=== PATIENT | female | born 1975 | race Caucasian/White ===

== ENCOUNTER 2017-02-12 06:55 | Day surgery (SDC) | payer MEDICARE, OTHER ==
[2017-02-12] MEDS ORDERED: PROCHLORPERAZINE 10 MG/2 ML VIAL. IV (07:00)
[2017-02-12] MEDS ORDERED: ONDANSETRON PF 4 MG/2 ML VIAL. IV (07:00)
[2017-02-12] MEDS ORDERED: fentaNYL PF VIAL 100 MCG/2 ML VIAL IV (07:00)
[2017-02-12] MEDS ORDERED: HYDROmorphone 2 MG/ML VIAL IV (07:00)
[2017-02-12] MEDS ORDERED: LIDOCAINE 1% PF 2 ML VIAL. ID (07:00)
[2017-02-12] MEDS ORDERED: MORPHINE SULFATE 2 MG/ML DISP.SYRIN. IV (07:00)
[2017-02-12] MEDS: IV RINGERS,LACTATED 1000ML 1,000 ML IV (07:40)
[2017-02-12 07:45] LABS: NEG OBC UR NEG; POS OBC UR POS
[2017-02-12] MEDS ORDERED: PROPOFOL 20 ML IV ×2 (08:19→08:48)
[2017-02-12] MEDS ORDERED: MIDAZOLAM HCL/PF 2 MG/2 ML VIAL. (08:19)
[2017-02-12] MEDS ORDERED: fentaNYL PF VIAL 100 MCG/2 ML VIAL (08:19)
[2017-02-12] MEDS ORDERED: FAMOTIDINE 20 MG/2 ML VIAL (08:19)
[2017-02-12] MEDS ORDERED: ONDANSETRON PF 4 MG/2 ML VIAL. (08:19)
[2017-02-12] MEDS ORDERED: LIDOCAINE 2% PF Vial for OR 5 ML VIAL. (08:19)
[2017-02-12] MEDS ORDERED: DEXAMETHASONE SOD PHOS 20 MG/5 ML VIAL. (08:19)
[2017-02-12] MEDS: BUPIVACAINE MPF 0.5% 30 ML VIAL. (08:51)
[2017-02-12] MEDS: LIDOCAINE 1% PF 30 ML VIAL. (08:52)
[2017-02-12] MEDS ORDERED: SEVOFLURANE 16 TO 30 MINUTES. IH (08:57)
[2017-02-12] MEDS: fentaNYL PF VIAL 100 MCG/2 ML VIAL IV (09:22)
[2017-02-12] MEDS: HYDROcodone/APAP 5/325MG 1 TAB TABLET PO (09:58)
== END 2017-02-12 10:38 | disposition home or self-care (01) ==
LOC: SURG 06:55
DX: G56.02 Carpal tunnel syndrome, left upper limb (principal); F32.9 Major depressive disorder, single episode, unspecified; F41.9 Anxiety disorder, unspecified; E78.00 Pure hypercholesterolemia, unspecified; Z20.2 Contact with and (suspected) exposure to infections with a predominantly sexual mode of transmission; F98.8 Other specified behavioral and emotional disorders with onset usually occurring in childhood and adolescence; Z98.890 Other specified postprocedural states; Z79.899 Other long term (current) drug therapy
CPT/HCPCS: 64721; 81025; J0690; J1100; J2250; J2405; J2704; J3010; J3490; S0028

== ENCOUNTER → 2017-06-14 | Outpatient (CLI) | payer MEDICARE | END | disposition home or self-care (01) | LOC: KCIC MAMMO 13:08 | DX: Z12.31 Encounter for screening mammogram for malignant neoplasm of breast (principal) | CPT/HCPCS: 77067 ==

== ENCOUNTER → 2017-06-26 | Outpatient (CLI) | payer MEDICARE | END | disposition home or self-care (01) | LOC: KCIC MAMMO 08:30 | DX: N64.89 Other specified disorders of breast (principal); E78.00 Pure hypercholesterolemia, unspecified | CPT/HCPCS: 76641; 77066 ==

== ENCOUNTER 2017-07-04 05:58 | Day surgery (SDC) | payer MEDICARE ==
[~2017-07-04 05:58] MED LIST: BUPIVACAINE MPF 0.5% 30 ML VIAL.; LIDOCAINE 1% PF 30 ML VIAL.
[2017-07-04] MEDS: IV RINGERS,LACTATED 1000ML 1,000 ML IV (06:48)
[2017-07-04 06:51] LABS: NEG OBC UR NEG; POS OBC UR POS; U PREG PATIENT NEGATIVE (NEG)
[2017-07-04] MEDS ORDERED: ONDANSETRON PF 4 MG/2 ML VIAL. IV (07:00)
[2017-07-04] MEDS ORDERED: PROCHLORPERAZINE 10 MG/2 ML VIAL. IV (07:00)
[2017-07-04] MEDS ORDERED: MORPHINE SULFATE 4 MG/ML DISP.SYRIN. IV (07:00)
[2017-07-04] MEDS ORDERED: HYDROmorphone 2 MG/ML VIAL IV (07:00)
[2017-07-04] MEDS ORDERED: LIDOCAINE 1% PF 2 ML VIAL. ID (07:00)
[2017-07-04] MEDS ORDERED: fentaNYL PF VIAL 100 MCG/2 ML VIAL IV ×2 (07:00)
[2017-07-04] MEDS ORDERED: LIDOCAINE 2% PF Vial for OR 5 ML VIAL. (07:13)
[2017-07-04] MEDS ORDERED: DEXAMETHASONE SOD PHOS 20 MG/5 ML VIAL. (07:13)
[2017-07-04] MEDS ORDERED: ONDANSETRON PF 4 MG/2 ML VIAL. (07:13)
[2017-07-04] MEDS ORDERED: PROPOFOL 20 ML IV (07:13)
[2017-07-04] MEDS ORDERED: fentaNYL PF VIAL 100 MCG/2 ML VIAL (07:14)
[2017-07-04] MEDS ORDERED: MIDAZOLAM HCL/PF 2 MG/2 ML VIAL. (07:14)
[2017-07-04] MEDS ORDERED: LIDOCAINE 1% Multi-Dose 50 ML VIAL. (07:21)
[2017-07-04] MEDS ORDERED: HYDROcodone/APAP 7.5/325MG 1 TAB TABLET PO (08:45)
[2017-07-04] MEDS ORDERED: ceFAZolin 2GM PREMIX 2 GM/50 ML BAG IV (12:00)
== END 2017-07-04 09:41 | disposition home or self-care (01) ==
LOC: SURG 05:58
DX: G56.01 Carpal tunnel syndrome, right upper limb (principal); F32.9 Major depressive disorder, single episode, unspecified; F41.0 Panic disorder [episodic paroxysmal anxiety]; E78.00 Pure hypercholesterolemia, unspecified; F98.8 Other specified behavioral and emotional disorders with onset usually occurring in childhood and adolescence; F39 Unspecified mood [affective] disorder; Z98.890 Other specified postprocedural states; Z82.49 Family history of ischemic heart disease and other diseases of the circulatory system; Z82.3 Family history of stroke; F17.210 Nicotine dependence, cigarettes, uncomplicated; Z79.899 Other long term (current) drug therapy
CPT/HCPCS: 64721; 81025; J0690; J1100; J2250; J2405; J2704; J3010; J3490

== ENCOUNTER → 2018-05-30 | Outpatient (CLI) | payer MEDICARE ==
[2017-07-04 09:24] VITALS: BP 121/81
[~2018-05-30] MED LIST changes: +ALBU2.5V8 INH; +BACL20TA PO; -BUPIVACAINE MPF 0.5% 30 ML VIAL.; +CELE200C PO; +CITA40TA12 PO; +CLON2TAB9 PO; +DEXT30CA6 PO; +DIPH25CA58 PO; +DOCU-109 PO; +FURO20TA3 PO; +GABA-585 PO; +HYDR-2765 PO; +HYDR-3164 PO; -LIDOCAINE 1% PF 30 ML VIAL.; +LURA40TA PO; +OMEP20TA63 PO; +ONDA4TAB7 PO; +ONDA8TAB12 PO; +RANI-376 PO; +RIZA10TA PO
--- NOTE | 2018-05-30 12:05 | KCIC ---
Bilateral diagnostic digital mammograms: Reason for examination: Follow-up parenchymal nodules. Comparison is made to previous study dated 06/14/2017. Interpretation was made with the benefit of CAD. The skin and nipples show no abnormalities. No abnormal axillary lymph nodes are seen. The breast parenchyma shows scattered fibroglandular density. (Breast density: Category B.) There continued be small parenchymal densities seen bilaterally without change. There are no new dominant masses, suspicious calcifications or architectural distortions. Impression: Small parenchymal densities bilaterally. Ultrasound to follow. BI-RADS Category 0: Incomplete. Needs additional imaging evaluation. Bilateral breast ultrasound: Comparison is made to previous study dated 06/26/2017. Bilateral whole breast ultrasound including evaluation of all 4 quadrants and the retroareolar and axillary regions of both breasts was performed. In the right breast, there continue to be small hypoechoic nodular lesions which are subcentimeter in size consistent with fibrocystic changes. No suspicious nodules are seen. No abnormal appearing lymph nodes are seen in the right axilla. In the left breast, there is an intramammary lymph node at the 3:00 position 12 cm from the nipple measuring 3.9 mm in size. There is also a small 4.9 mm lesion consistent with a complicated cyst at the 3:30 position 7 cm from the nipple. There are no other cystic or solid lesion seen. No abnormal appearing lymph nodes are seen in the left axilla. IMPRESSION: Continued presence of benign-appearing fibrocystic changes bilaterally and an intramammary lymph node in the left breast. No suspicious abnormality seen. Recommend routine mammographic follow-up. BI-RADS Category 2: Benign. "Our facility is accredited by the [employer] Mammography Program." This patient's information has been entered into a reminder system for the patient to be notified with the results of her examination and a target date for the next mammogram. Electronically signed by: Dayna Quinones MD (05/30/2018 12:02 PM) [id number]
== END | disposition home or self-care (01) ==
LOC: KCIC MAMMO 08:07
PROVIDERS: ATTEND Family Medicine
DX: Z09 Encounter for follow-up examination after completed treatment for conditions other than malignant neoplasm (principal); R92.8 Other abnormal and inconclusive findings on diagnostic imaging of breast
CPT/HCPCS: 76641; 77066

== ENCOUNTER → 2018-11-08 | Outpatient (CLI) | payer MEDICARE ==
[2017-07-04 09:24] VITALS: BP 121/81
--- NOTE | 2018-11-10 10:47 | KCIC ---
MRI of the brain without contrast 11/10/2018 Clinical History: Migraine headaches. Technique: Unenhanced T1-weighted sagittal and axial, T2-weighted axial and coronal and FLAIR, gradient echo and diffusion-weighted axial images of the brain were obtained. Findings: Comparison is made to patient's CT scan of the head dated 11/11/2016. The ventricles and sulci are within normal limits in size and configuration. Patchy and several small focal areas of abnormally increased signal intensity are seen within the periventricular and subcortical white matter of both cerebral hemispheres on the FLAIR and T2-weighted images. These measure 2 mm to 7 mm in size. Their MRI appearance is nonspecific. They could reflect areas of small vessel ischemic disease. They can be seen in patients with a history of migraine headaches. No acute parenchymal abnormality is seen. No extra-axial fluid collection is seen. There is no MRI evidence of acute ischemia/infarction. The paranasal sinuses are essentially clear. Moderate to large mastoid effusions are seen bilaterally. Normal flow voids are seen within the major vascular structures surrounding the brain parenchyma. Impression: 1. Patchy and several small focal areas of abnormally increased signal intensity are seen within the white matter of both cerebral hemispheres on the FLAIR and T2-weighted images. These have a nonspecific MRI appearance. They could reflect areas of small vessel ischemic disease. They can be seen in patients with history of migraine headaches. 2. No acute parenchymal abnormality is seen. 3. Moderate to large sized bilateral mastoid effusions. Electronically signed by: Michael Gilbert MD (11/10/2018 10:44 AM) [facility]
--- NOTE | 2018-11-10 11:13 | KCIC ---
MRI of the cervical spine without contrast 11/08/2018 CLINICAL HISTORY: Neck pain. Fibromyalgia. TECHNIQUE: Unenhanced T1-weighted, T2-weighted and inversion recovery sagittal and gradient echo and T2-weighted axial images of the cervical spine were obtained. FINDINGS: Very mild lateral curvature of the cervical spine is seen convex to the left. There is straightening of the normal cervical lordosis. Degenerative signal changes are seen involving all of the disks of the cervical spine. Degenerative signal changes are seen within the marrow surrounding the C4-5, C5-6 and C6-7 discs. The cervical spinal cord is normal morphology, position, and signal characteristics. Mild mucosal thickening is seen involving both maxillary sinuses. At the C2-3, C3-4, C4-5 and C5-6 disc spaces there are minimal to mild generalized disc bulges. Degenerative changes are seen involving the uncovertebral and facet joints bilaterally. These findings do not result in significant central spinal canal or neural foraminal stenosis. At the C6-7 disc space is a mild generalized disc bulge. Superimposed on this disc bulge is a focal central disc protrusion. This measures 2 mm in AP diameter. Degenerative changes are seen involving the uncovertebral and facet joints bilaterally. These findings do not result in significant central spinal canal or neural foraminal stenosis. At the C7-T1 disc space there is a minimal generalized disc bulge. Degenerative changes are seen involving the facet joints bilaterally. These findings do not result in significant central spinal canal or neural foraminal stenosis. IMPRESSION: Degenerative changes are seen throughout the cervical spine. These findings do not result in significant central spinal canal or neural foraminal stenosis at any level. Electronically signed by: Michael Gilbert MD (11/10/2018 11:10 AM) [facility]
--- NOTE | 2018-11-10 11:17 | KCIC ---
MRI of the lumbar spine without contrast 11/08/2018 CLINICAL HISTORY: Low back pain. Fibromyalgia. TECHNIQUE: Unenhanced T1-weighted and T2-weighted sagittal and axial and inversion recovery sagittal images of the lumbar spine were obtained. FINDINGS: Very mild S-shaped curvature of the thoracolumbar spine is seen. Degenerative signal changes are seen involving the L4-5 discs. Degenerative signal changes are seen within the marrow surrounding this disc. The conus medullaris is normal morphology, position, and signal characteristics. At the L1-2, L2-3 and L3-4 disc spaces there are minimal generalized disc bulges. Degenerative changes are seen involving the facet joints bilaterally. There is mild ligamentum flavum hypertrophy bilaterally. These findings do not result in significant central spinal canal or neural foraminal stenosis. At the L4-5 disc space there is a mild to moderate generalized disc bulge. This is eccentric to the left. Degenerative changes are seen involving the facet joints bilaterally. There is mild ligamentum flavum hypertrophy bilaterally. There is prominence of the posterior epidural fat. These findings when combined result in mild central spinal canal stenosis. No neural foraminal stenosis is seen. At the L5-S1 disc space there is a minimal generalized disc bulge. Degenerative changes are seen involving the facet joints bilaterally. These findings do not result in significant central spinal canal or neural foraminal stenosis. IMPRESSION: The changes of degenerative disc disease are seen involving the lumbar spine. These findings result in mild central spinal canal stenosis at L4-5. No neural foraminal stenosis is seen. Electronically signed by: Michael Gilbert MD (11/10/2018 11:14 AM) [facility]
== END | disposition home or self-care (01) ==
LOC: KCIC MRI 14:43
PROVIDERS: ATTEND Psychiatry & Neurology Neurology with Special Qualifications in Child Neurology
DX: M51.36 Other intervertebral disc degeneration, lumbar region (principal); M48.061 Spinal stenosis, lumbar region without neurogenic claudication; M47.892 Other spondylosis, cervical region; M50.223 Other cervical disc displacement at C6-C7 level; G43.909 Migraine, unspecified, not intractable, without status migrainosus; H74.8X3 Other specified disorders of middle ear and mastoid, bilateral
CPT/HCPCS: 70551; 72141; 72148

== ENCOUNTER → 2020-03-23 | Outpatient (CLI) | payer MEDICARE ==
[2017-07-04 09:24] VITALS: BP 121/81
--- NOTE | 2020-03-23 16:12 | RAD ---
INDICATION: Reason: SHORT OF BREATH, WORSE WITH EXERTION, SMOKER / Spl. Instructions: / History: COMPARISON: None. FINDINGS: 2 view of chest obtained. Cardiac silhouette is unremarkable. No focal airspace consolidation or pulmonary edema. No gross osseous destructive lesion. IMPRESSION: * No focal airspace consolidation or edema. Electronically signed by: Landen Cohen MD (03/23/2020 4:10 PM) [id number]
== END ==
LOC: LAB 11:24
PROVIDERS: ATTEND Internal Medicine Pulmonary Disease
DX: R06.02 Shortness of breath (principal)
CPT/HCPCS: 71046

== ENCOUNTER → 2020-04-06 | Outpatient (CLI) | payer OTHER, MEDICAID ==
[2017-07-04 09:24] VITALS: BP 121/81
== END ==
LOC: LAB 11:30
PROVIDERS: ATTEND Internal Medicine Cardiovascular Disease
DX: R94.39 Abnormal result of other cardiovascular function study (principal); Z20.822 Contact with and (suspected) exposure to COVID-19
CPT/HCPCS: U0003

== ENCOUNTER 2020-04-08 07:02 | Outpatient (CLI) | payer MEDICARE, MEDICAID ==
[2020-04-08] VITALS (9 sets, daily range): BP systolic 111–142; BP diastolic 68–94
[~2020-04-08] VITALS: Ht 154.9 cm; Wt 78.0 kg
[2020-04-08 07:30] LABS: HEMATOCRIT 41.3 % (36.0-47.0); HEMOGLOBIN 13.9 g/dL (12.0-15.5); RED BLOOD COUNT 4.5 x10^6/uL (3.50-5.40); RED CELL DISTRIBUTION WIDTH 13.3 % (11.5-14.5); WHITE BLOOD COUNT 7.7 x10^3/uL (4.0-11.0)
[2020-04-08] MEDS ORDERED: IODIXANOL 320 MG/ML 100 ML VIAL. ONE (07:35)
[2020-04-08] MEDS ORDERED: LIDOCAINE 1% PF 2 ML VIAL. ONE (07:35)
[2020-04-08] MEDS ORDERED: HEPARIN for ARTERIAL LINE 1,500 ML ONE (07:35)
[2020-04-08 07:40] LABS: PROTHROMBIN TIME PATIENT 12.1 SEC (11.7-14.0)
[2020-04-08 07:53] LABS: CALCIUM 8.4 mg/dL (8.5-10.1); CREATININE 0.9 mg/dL (0.6-1.0); GFR 68.7; POTASSIUM 3.4 mmol/L (3.5-5.1)
[2020-04-08] MEDS ORDERED: fentaNYL PF VIAL 100 MCG/2 ML VIAL ONE (08:59)
[2020-04-08] MEDS ORDERED: VERAPAMIL 5 MG/2 ML VIAL. ONE (08:59)
[2020-04-08] MEDS ORDERED: MIDAZOLAM HCL/PF 2 MG/2 ML VIAL. ONE (08:59)
[2020-04-08] MEDS ORDERED: HEPARIN for IV BOLUS 10,000 UNIT/10 ML VIAL. ONE (08:59)
[2020-04-08] MEDS ORDERED: NITROGLYCERIN 200 MCG/2 ML SYRINGE FOR CATH/VASC LAB. ONE (09:00)
[2020-04-08] MEDS ORDERED: MIDAZOLAM HCL/PF 2 MG/2 ML VIAL. IV ONE (09:30)
[2020-04-08] MEDS ORDERED: VERAPAMIL 5 MG/2 ML VIAL. IART ONE (09:30)
[2020-04-08] MEDS ORDERED: HEPARIN for IV BOLUS 10,000 UNIT/10 ML VIAL. IART ONE (09:30)
[2020-04-08] MEDS ORDERED: NITROGLYCERIN 200 MCG/2 ML SYRINGE FOR CATH/VASC LAB. IART ONE (09:30)
[2020-04-08] MEDS ORDERED: fentaNYL PF VIAL 100 MCG/2 ML VIAL IV ONE (09:30)
[2020-04-08] MEDS ORDERED: IODIXANOL 320 MG/ML 100 ML VIAL. IART ONE (09:30)
[2020-04-08] MEDS ORDERED: LIDOCAINE 1% PF 2 ML VIAL. INJ ONE (09:30)
--- NOTE | 2020-04-08 12:13 | NUR ---
piv dc'd. TR band dc'd. Armboard reapplied. discharge instructions reviewed with pt. Emreexa prescription called in to pharmacy. Pt ambulated and tolerated PO. Pt home with family.
--- NOTE | 2020-04-08 15:00 | CARD ---
MR#: [id number] Date of Study: 04/08/2020 Ordering Physician: JOHN TEJEDA, Referring Physician: JOHN TEJEDA, Tech: Anneliese Spence APPROVED REPORT Technologist: Anneliese Spence Nurse: Binta Wing R.N. Procedure(s) performed: fl time: 1.8 mins dose: 29 gycm2 contrast: 48 ml moderate sedation: 20 mins Coronary angiography [facility] Clinical Frailty Scale [facility] Clinical Frailty Scale: Managing Well Heart Failure Heart Failure: No CASE TECHNIQUE IV conscious sedation was used throughout procedure with appropriate monitoring and was performed in the presence of a registered nurse who was an independent trained observer other than the physician p erforming the procedure. During this case, Fluoroscopy and low osmolar contrast were used for imaging . Specimen(s) Removed: N/A Estimated Blood loss: 10 cc's. PROCEDURE NARRATIVE Clinical information: 44-year-old woman with a past medical history of tobacco abuse and chest pain as well as significant family history who underwent a stress test which revealed anterior septal defect that was reversible suggestive of LAD territory ischemia and so she was brought to the catheterization laboratory for fur ther evaluation and treatment. Informed consent: Written informed consent was obtained from the patient after adequate discussion of the risks and rasheeda efits of the procedure. Procedure details: ACCESS: The right wrist was prepped and draped in usual sterile fashion. Under 1% lidocaine local anesthesia a 6 Maltese Terumo sheath was placed in the right radial artery via the Seldinger technique. DIAGNOSTIC ANGIOGRAPHY: Right and left coronary arteries were engaged with a 6 Maltese TIG catheter. Diagnostic angiography i n multiple views were obtained. Next, a 6 Maltese pigtail catheter was placed in the left ventricle a nd a LVEDP was measured. A pullback was performed after left ventriculography. All catheters were e xchanged over J-tip guidewire. FINDINGS: ======= Aorta: 110/80 Coronary angiography: LM: Large caliber vessel with normal angiographic appearance LAD: Large caliber vessel proximally with rapid tapering in the mid to distal segment and mild 30 to 40% stenosis in the mid to distal segment. D1: Small caliber vessel with normal angiographic appearance LCX: Moderate caliber non-dominant vessel with mild luminal irregularities OM1: Moderate caliber vessel with normal angiographic appearance RCA: Large caliber dominant vessel with normal angiographic appearance RPDA: Moderate caliber vessel with normal angiographic appearance CLOSURE: At case completion the right radial sheath was removed and a Terumo radial band was applied with 11 m L of air. Hemostasis was achieved. COMPLICATIONS: No acute complications noted Conclusion 1. No significant obstructive coronary artery disease 2. Distal vessel pruning suggestive overall of microvascular disease. Recommendations Trial of Ranexa therapy with aggressive treatment for smoking cessation and underlying psychiatric is sues. Signed by : John Tejeda, Electronically Approved : 04/08/2020 14:59:32
== END 2020-04-08 12:14 | disposition home or self-care (01) ==
LOC: CCL 07:02
PROVIDERS: ATTEND Internal Medicine Cardiovascular Disease
DX: R07.9 Chest pain, unspecified (principal); R94.39 Abnormal result of other cardiovascular function study; K21.9 Gastro-esophageal reflux disease without esophagitis; E66.9 Obesity, unspecified; F32.9 Major depressive disorder, single episode, unspecified; F41.9 Anxiety disorder, unspecified; J45.909 Unspecified asthma, uncomplicated; F17.210 Nicotine dependence, cigarettes, uncomplicated; Z79.899 Other long term (current) drug therapy; Z98.890 Other specified postprocedural states; Z82.49 Family history of ischemic heart disease and other diseases of the circulatory system
CPT/HCPCS: 36415; 80048; 85027; 85610; 93458; 99152; C1769; C1892; J1644; J2250; J3010; J3490; Q9967; 93454

== ENCOUNTER → 2020-11-16 | Outpatient (CLI) | payer OTHER, MEDICAID ==
[2020-04-08 11:42] VITALS: BP 111/71
--- NOTE | 2020-11-16 14:02 | KCIC ---
EXAMINATION: MRI RIGHT SHOULDER WITHOUT IV CONTRAST CLINICAL HISTORY: Right shoulder pain after having arms pulled upward in horseplay 3 months ago TECHNIQUE: Multiplanar multisequential images obtained through the shoulder without intravenous contr ast. COMPARISON: Right shoulder radiographs 10/06/2020 FINDINGS: TENDONS: - Supraspinatus: Low-grade bursal sided fraying in the middle third of the tendon and [id number] e tendinosis. No full-thickness tear. - Infraspinatus: Mild to moderate tendinosis without discrete tear. - Subscapularis: Within normal limits. - Teres Minor: Within normal limits. - Biceps Tendon: The long head biceps tendon is intact and appropriately located. MUSCLES: Muscle bulk and signal intensity are within normal limits. LABRUM: Deficient posterior labrum, possibly related to degenerative changes. GLENOHUMERAL JOINT: - Joint Fluid: No joint effusion or synovitis. - Cartilage: Within normal limits. ACROMIOCLAVICULAR JOINT: Mild degenerative changes. BONES/MARROW: No evidence of acute fracture or suspicious marrow replacing process. IMPRESSION: Low-grade bursal sided fraying in the supraspinatus tendon and mild to moderate rotator cuff tendinos is as described. No full-thickness rotator cuff tear. Electronically signed by: Rafael Glasgow DO (11/16/2020 2:00 PM) [facility]
== END ==
LOC: KCIC MRI 10:58
PROVIDERS: ATTEND Family Medicine
DX: M19.011 Primary osteoarthritis, right shoulder (principal)
CPT/HCPCS: 73221

== ENCOUNTER 2021-05-29 23:16 | Emergency (ER) | payer OTHER, MEDICAID ==
[~2021-05-29] VITALS: Ht 154.9 cm; Wt 81.8 kg
[~2021-05-29 23:16] MED LIST changes: -LURA40TA PO; +LURA40TA2 PO
--- NOTE | 2021-05-29 23:42 | PHYS DOC ---
Past Medical History Smoking Status: Current Every Day Smoker General Adult EDM: Chief Complaint: MULTIPLE COMPLAINTS HPI: HPI: History obtained from patient. Patient is a 45-year-old female with past medical history significant anxiety, depression, migraines who presents with multiple complaints. Patient states that she was started on a new antidepressant medication 3 weeks ago by her psychiatrist. She states it is called Vilazodone. She notes a recent starting this medication she has had strange symptoms. She states that she has difficulty sleeping. She notes she wakes up frequently throughout the night and experiences "sleep paralysis." She states that she is awake but cannot move. She also notes during this she feels palpitations, blood rushing to her chest, feelings of anxiousness. Notes that she did some research and is concerned she may be experiencing serotonin syndrome as she does take Adderall sumatriptan with this medicine. She was told that she cannot stop taking the vilazodone cold turkey. She states her next appoint with her psychiatrist is not for 1 month. She also notes that she has had some itching sensation in her left eye. Notes clear watery discharge. Denies trauma or injury. States she has an appointment with ENT specialist in 4 days for turbinectomy. Denies any exertional chest pain. Notes history of heart catheterization 1 year ago that did not result in any intervention. Denies alcohol use, recreational drug use, tobacco use. Review of Systems: Review of Systems: Constitutional: Denies fever or chills. [] Eyes: Itchy eyes HENT: Denies nasal congestion or sore throat. [] Respiratory: Denies cough or shortness of breath. [] Cardiovascular: Denies chest pain or edema. [] GI: Denies abdominal pain, nausea, vomiting, bloody stools or diarrhea. [] : Denies dysuria. [] Musculoskeletal: Denies back pain or joint pain. [] Integument: Denies rash. [] Neurologic: Denies headache, focal weakness or sensory changes. [] Endocrine: Denies polyuria or polydipsia. [] Lymphatic: Denies swollen glands. [] Psychiatric: Denies depression or anxiety. [] Heart Score: C/O Chest Pain: No HEART Score for Chest Pain: HEART Score for Chest Pain Response (Comments) Value History Slighlty/Non-Suspicious 0 ECG Normal 0 Age < 45 0 Risk Factors 1 or 2 Risk Factors 1 Troponin < Normal Limit 0 Total 1 Risk Factors: Risk Factors: DM, Current or recent (<one month) smoker, HTN, HLP, family history of CAD, obesity. Risk Scores: Score 0 - 3: 2.5% MACE over next 6 weeks - Discharge Home Score 4 - 6: 20.3% MACE over next 6 weeks - Admit for Clinical Observation Score 7 - 10: 72.7% MACE over next 6 weeks - Early Invasive Strategies Allergies: Allergies: Allergies Coded Allergies Type Severity Reaction Last Updated Verified No Known Drug Allergies 07/04/17 No Physical Exam: PE: Constitutional: Well developed, well nourished, no acute distress, non-toxic appearance. [] HENT: Normocephalic, atraumatic, bilateral external ears normal, oropharynx moist, no oral exudates, nose normal. [] Eyes: Slightly injected conjunctivonoted to the left eye. Clear watery discharge noted. No hyphema or hypopyon appreciated. Pupils 3 mm and briskly reactive bilaterally. No APD present Neck: Normal range of motion, no tenderness, supple, no stridor. [] Cardiovascular:Heart rate regular rhythm, no murmur [] Lungs & Thorax: Bilateral breath sounds clear to auscultation [] Abdomen: Bowel sounds normal, soft, no tenderness, no masses, no pulsatile masses. [] Skin: Warm, dry, no erythema, no rash. [] Back: No tenderness, no CVA tenderness. [] Extremities: No tenderness, no cyanosis, no clubbing, ROM intact, no edema. [] Neurologic: A alert with intact cognitive function. No aphasia, dysarthria, or neglect. GCS 15. Pupils [] mm briskly reactive b/l. No APD present. Cranial nerves 2-12 grossly intact; no facial asymmetry present, tongue midline, shoulder shrugging strength intact. Strength 5/5 and symmetric throughout. Light touch sensation intact throughout. Cerebellar testing appropriate without evidence of dysdiadochokinesia. DTR's 2+ in all 4 extremities. Negative pronator drift bilaterally. Gait normal. No clonus appreciated Psychologic: Affect normal, judgement normal, mood normal. [] Current Patient Data: Labs: Laboratory Tests Test 05/30/21 00:03 White Blood Count 6.8 x10^3/uL (4.0-11.0) Red Blood Count 4.26 x10^6/uL (3.50-5.40) Hemoglobin 13.1 g/dL (12.0-15.5) Hematocrit 39.2 % (36.0-47.0) Mean Corpuscular Volume 92 fL (79-100) Mean Corpuscular Hemoglobin 31 pg (25-35) Mean Corpuscular Hemoglobin Concent 33 g/dL (31-37) Red Cell Distribution Width 12.9 % (11.5-14.5) Platelet Count 175 x10^3/uL (140-400) Neutrophils (%) (Auto) 52 % (31-73) Lymphocytes (%) (Auto) 40 % (24-48) Monocytes (%) (Auto) 5 % (0-9) Eosinophils (%) (Auto) 3 % (0-3) Basophils (%) (Auto) 1 % (0-3) Neutrophils # (Auto) 3.5 x10^3/uL (1.8-7.7) Lymphocytes # (Auto) 2.7 x10^3/uL (1.0-4.8) Monocytes # (Auto) 0.4 x10^3/uL (0.0-1.1) Eosinophils # (Auto) 0.2 x10^3/uL (0.0-0.7) Basophils # (Auto) 0.1 x10^3/uL (0.0-0.2) Sodium Level 141 mmol/L (136-145) Chloride Level 106 mmol/L (98-107) Carbon Dioxide Level 29 mmol/L (21-32) Anion Gap 6 (6-14) Blood Urea Nitrogen 14 mg/dL (7-20) Estimated GFR (Cockcroft-Gault) 37.9 BUN/Creatinine Ratio 9 (6-20) Glucose Level 89 mg/dL (70-99) Calcium Level 8.5 mg/dL (8.5-10.1) Total Bilirubin 0.2 mg/dL (0.2-1.0) Aspartate Amino Transf (AST/SGOT) 18 U/L (15-37) Alkaline Phosphatase 25 U/L (46-116) Troponin I High Sensitivity 6 ng/L (4-50) Total Protein 7.0 g/dL (6.4-8.2) Albumin 3.6 g/dL (3.4-5.0) Albumin/Globulin Ratio 1.1 (1.0-1.7) EKG: EKG: [] EKG consistent with sinus rhythm. Ventricular rate of 90 bpm. Commodore normal. Intervals normal. No acute ischemia noted Radiology/Procedures: Radiology/Procedures: [] Course & Med Decision Making: Course & Med Decision Making Pertinent Labs and Imaging studies reviewed. (See chart for details) Patient is an anxious appearing 45-year-old female presents with chief complaint of hot flashes over her chest as well as symptoms of "sleep paralysis." She describes waking up 7 times this evening with the inability to move or talk to her fianc right next to her. Concerned this could be a medication reaction as she recently started Viibryd. Initial vital signs unremarkable. No signs of hypertension, tachycardia, or fever. Assessment overall reassuring. No focal neurologic deficits noted. No clonus appreciated. No tremors appreciated. Basic labs are reassuring including normal troponin. Chest x-ray is interpreted by myself reveals no acute abnormality. I did discuss at length with patient and fianc at bedside the results of labs and imaging. No signs of serotonin syndrome at this time. Overall I do feel it is reasonable to discharge patient home. No signs of emergent etiology at this time. Low risk heart score per my estimation. Patient symptoms not consistent with cardiac etiology. I did encourage her to contact her psychiatrist tomorrow regarding potential medication side effects given her new medication. Patient is motivated for discharge and comfortable with this plan. Strict return precautions discussed and understood. Stable and agreeable for discharge home Chan Disclaimer: Chan Disclaimer: This electronic medical record was generated, in whole or in part, using a voice recognition dictation system. Departure Departure Impression: Primary Impression: Insomnia Qualified Codes: G47.00 - Insomnia, unspecified Disposition: HOME / SELF CARE / HOMELESS Condition: GOOD Referrals: ROME LACEY MD (PCP) Patient Instructions: Insomnia ANUP ZHANG DO May 29, 2021 23:42
[2021-05-30 00:20] LABS: BASO # 0.1 x10^3/uL (0.0-0.2); BASO % 1 % (0-3); EOS # 0.2 x10^3/uL (0.0-0.7); EOS % 3 % (0-3); HEMATOCRIT 39.2 % (36.0-47.0); HEMOGLOBIN 13.1 g/dL (12.0-15.5); LYMPH # 2.7 x10^3/uL (1.0-4.8); LYMPH % 40 % (24-48); MEAN CORPUSCULAR HEMOGLOBIN 31 pg (25-35); MEAN CORPUSCULAR HGB CONC 33 g/dL (31-37); MEAN CORPUSCULAR VOLUME 92 fL (79-100); MONO # 0.4 x10^3/uL (0.0-1.1); MONO % 5 % (0-9); NEUT # 3.5 x10^3/uL (1.8-7.7); NEUT % 52 % (31-73); PLATELET COUNT 175 x10^3/uL (140-400); RED BLOOD COUNT 4.26 x10^6/uL (3.50-5.40); RED CELL DISTRIBUTION WIDTH 12.9 % (11.5-14.5); WHITE BLOOD COUNT 6.8 x10^3/uL (4.0-11.0)
[2021-05-30 00:35] LABS: CALCIUM 8.5 mg/dL (8.5-10.1); CREATININE 1.5 mg/dL (0.6-1.0); GFR 37.9; POTASSIUM 3.8 mmol/L (3.5-5.1)
[2021-05-30 00:40] LABS: ALBUMIN 3.6 g/dL (3.4-5.0); ALBUMIN/GLOBULIN RATIO 1.1 (1.0-1.7); TOTAL BILIRUBIN 0.2 mg/dL (0.2-1.0)
[2021-05-30 01:30] VITALS: BP 135/84
--- NOTE | 2021-05-30 07:10 | RAD ---
EXAM: Chest, single view. HISTORY: Chest pain. COMPARISON: 03/23/2020 FINDINGS: A frontal view of the chest is obtained. There is no infiltrate, pleural effusion or pneumo thorax. The heart is normal in size. IMPRESSION: No acute pulmonary finding. Electronically signed by: Davina Espino MD (05/30/2021 7:08 AM) [facility]
--- NOTE | 2021-06-02 13:52 | EKG ---
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
== END 2021-05-30 01:38 | disposition home or self-care (01) ==
LOC: ER 23:16
DX: G47.00 Insomnia, unspecified (principal); F32.9 Major depressive disorder, single episode, unspecified; F41.9 Anxiety disorder, unspecified; G43.909 Migraine, unspecified, not intractable, without status migrainosus
CPT/HCPCS: 36415; 71045; 80053; 84484; 85025; 93005; 99284; 99285-25